=== PATIENT | male | born 1970 | race Caucasian/White ===

== ENCOUNTER 2017-01-09 12:53 | Day surgery (SDC) | payer OTHER ==
[2017-01-08 11:44] VITALS: BMI 31.6
[~2017-01-09] VITALS: Ht 170.2 cm; Wt 100.0 kg
[2017-01-09] VITALS (16 sets, daily range): BP systolic 117–180; BP diastolic 67–84; PULSE 80–94; RESP 15–20; Ht 170.2 cm; Wt 100.0 kg
[~2017-01-09 12:53] MED LIST: DENIES
--- NOTE | 2017-01-09 13:09 | HPN ---
Date/Time of Note Date/Time of Note DATE: 01/09/17 TIME: 13:09 Interval H&P Admission Note Pt. seen H&P reviewed: No system changes RED MAN MD Jan 09, 2017 13:09
[2017-01-09] MEDS ORDERED: LIDOCAINE 2%/EPI 30 ML INJ ONE (13:43)
[2017-01-09] MEDS ORDERED: OXYMETAZOLINE 0.05% 15 ML NAS SPRAY NASAL ONE ×2 (13:43→14:23)
[2017-01-09] MEDS ORDERED: GLYCOPYRROLATE 0.4 MG INJ ONE ×3 (13:58→14:40)
[2017-01-09] MEDS ORDERED: SUCCINYLCHOLINE CHLORIDE 100 MG/5 ML SYG IV ONE (13:58)
[2017-01-09] MEDS ORDERED: NEOSTIGMINE 3 MG/3 ML SYRINGE ONE ×2 (13:58→14:39)
[2017-01-09] MEDS ORDERED: ROCURONIUM 50 MG INJ ONE (13:58)
[2017-01-09] MEDS ORDERED: LIDOCAINE 2% (SDV) 5 ML INJ ONE (13:58)
[2017-01-09] MEDS ORDERED: PROPOFOL 20 ML ONE (13:58)
[2017-01-09] MEDS ORDERED: MEPERIDINE 100 MG INJ ONE (13:59)
[2017-01-09] MEDS ORDERED: ONDANSETRON 4 MG INJ IV PRN (14:00)
[2017-01-09] MEDS ORDERED: MIDAZOLAM 1 MG/ML 2 ML INJ IV PRN (14:00)
[2017-01-09] MEDS ORDERED: hydrALAzine 20 MG INJ IV PRN (14:00)
[2017-01-09] MEDS ORDERED: LABETALOL HCL 20MG INJ IV PRN (14:00)
[2017-01-09] MEDS ORDERED: morphine (1 MG/ML) 10ML SYRINGE IV PRN ×2 (14:00)
[2017-01-09] MEDS ORDERED: METOCLOPRAMIDE 10 MG INJ IV PRN (14:00)
[2017-01-09] MEDS ORDERED: DIPHENHYDRAMINE 50 MG INJ IV PRN (14:00)
[2017-01-09] MEDS ORDERED: FENTAnyl 50 MCG/ML VIAL IV PRN ×2 (14:00)
[2017-01-09] MEDS ORDERED: EPHEDrine SULFATE 50 MG/5 ML SYG IV PRN (14:00)
[2017-01-09] MEDS ORDERED: MEPERIDINE 25 MG INJ IV PRN (14:00)
--- NOTE | 2017-02-04 08:10 | OPR ---
DATE OF OPERATION: PREOPERATIVE DIAGNOSES: 1. Deviated septum. 2. Turbinate hypertrophy. 3. Nasal fracture. POSTOPERATIVE DIAGNOSIS: 1. Deviated septum. 2. Turbinate hypertrophy. 3. Nasal fracture. OPERATION PERFORMED: 1. Septoplasty. 2. Bilateral inferior turbinate modification. 3. Open reduction, nasal fracture. SURGEON: Fernando Dela Cruz MD ANESTHESIA: General. COMPLICATIONS: None. ESTIMATED BLOOD LOSS: 30 mL. OPERATIVE PROCEDURE: After informed consent was obtained, the patient was brought to the operating room and placed in supine position. General anesthesia was then induced. The nose was injected with 1 percent lidocaine with 1:100,000 epinephrine and Afrin-soaked nasal gauze. After a sufficient period of time had elapsed, the nose was prepped and draped in standard fashion. Left-side incision was made. Bilateral mucoperichondrial flaps were elevated. Osteocartilaginous structures were disarticulated. High cut was made in the perpendicular plate at the ethmoid using a Rodriguez scissors. Posterior bony structures removed using Erika. Inferiorly, cartilage was disarticulated from the maxillary crest. The crest deviation was removed using an osteotome. The septum was swung back into the midline and fixated to the maxillary spine using a figure-of- eight Vicryl suture. At this point, any cartilage that had been removed was morcellized and replaced. Septum was felt to be midline. The hemitransfixion incision was then closed using multiple chromic sutures with stitches using postseptal flaps. At this point, a left-sided inner cartilaginous incision was made and opened. This deformity was created using a rasp. Bilateral osteotomies were created allowing the nasal bones to be brought back into the midline. At this point, the inner cartilaginous incision was closed using chromic suture. Inferior turbinates were submucosally reduced, infractured and outfractured using a Lin. The airway was excellent. The nasal bones were straight. A standard rhinoplastic splint was applied. The patient was then awakened and transferred to recovery in stable condition. Dictated By: Fernando Dela Cruz MD /tracey/car /Document#: [id number]
== END 2017-01-09 17:30 | disposition home or self-care (01) ==
LOC: SDS 12:53
PROVIDERS: ATTEND Otolaryngology
DX: J34.2 Deviated nasal septum (principal); J34.3 Hypertrophy of nasal turbinates
CPT/HCPCS: 30140; 30520; 88300; J2175; J7999; Z7512; Z7610; J2710